=== PATIENT | female | born 1995 | race Caucasian/White ===

== ENCOUNTER 2016-06-08 11:24 | Observation (INO) ==
[2016-06-08] MEDS ORDERED: Ringers Solution, Lactated 500 ML IVC ONE (12:14)
[2016-06-08] MEDS ORDERED: Ringers Solution, Lactated 1,000 ML ONE (12:15)
[2016-06-08] MEDS ORDERED: Ondansetron 4 MG/2 ML VIAL IVP ONE (12:15)
[2016-06-08 12:18] LABS: Bilirubin,Urine Negative (Negative); Blood,Urine Negative (Negative); Clarity,Urine Cloudy (Clear); Color,Urine Yellow (Yellow); Glucose,Urine (UA) Normal (Normal); Ketones,Urine 40 mg/dL (Negative); Leukocyte Esterase,Urine Negative (Negative); Nitrite,Urine Negative (Negative); Protein,Urine Negative (Neg-Trace); Specific Gravity,Urine 1.017 (1.010-1.025); Urobilinogen,Urine Normal (Normal)
[2016-06-08 12:20] LABS: Bacteria,Urine Moderate per hpf (None-Few); Hyaline Casts,Urine None Seen per lpf (None-Few); RBC,Urine 0-3 per hpf (0-3); Squamous Epithelial Cell,Urine Many per lpf (None-Few); WBC,Urine 0-3 per hpf (0-3)
[2016-06-08 12:30] LABS: Calcium Oxalate Crystals,Urine Present
--- NOTE | 2016-06-08 14:06 | Discharge Summary ---
Date of Encounter: 06/08/16 Time of Encounter: 14:08 - Discharge Diagnosis (1) 23 weeks gestation of Priority: Primary Status: Acute (2) Nausea and vomiting during Priority: Primary Status: Acute Comments: Patient states she has been nauseous and vomiting since yesterday afternoon tried water this morning and did not keep it down. Given a 500 mL bolus of LR and by mouth challenged. Patient past by mouth challenge tolerated juice and crackers (3) Encounter for suspected PROM, with rupture of membranes not found Priority: Primary Status: Acute Comments: Patient complains of leaking of clear Stipe fluid vaginally for the last 2 days. Speck exam shows thin white vaginal discharge. Fern negative nitrazine negative, vaginosis panel and GC/CT cultures obtained - Discharge Medications Home Medications: Ondansetron HCl [Zofran] 4 mg PO Q8H PRN #7 tablet 07/30/15 [Rx] Allergies/Adverse Reactions: Allergies No Known Allergies Allergy (Verified 07/30/15 18:13) Data Procedures and tests throughout hospitalization: Laboratory Tests 06/08/16 12:00 Urine Color Yellow Urine Clarity Cloudy A Urine pH 7.0 Ur Specific Mcdaniels 1.017 Urine Protein Negative Urine Glucose (UA) Normal Urine Ketones 40 H Urine Blood Negative Urine Nitrite Negative Urine Bilirubin Negative Urine Urobilinogen Normal Ur Leukocyte Esterase Negative Urine Microscopic RBC 0-3 Urine Microscopic WBC 0-3 Ur Squamous Epith Cells Many H Calcium Oxalate Crystal Present Urine Bacteria Moderate H Hyaline Casts None Seen Ur Culture Indicated? NO Labs on day of discharge: Labs from last 24 hours 06/08/16 12:00 Urine Color Yellow Urine Clarity Cloudy A Urine pH 7.0 Ur Specific Mcdaniels 1.017 Urine Protein Negative Urine Glucose (UA) Normal Urine Ketones 40 H Urine Blood Negative Urine Nitrite Negative Urine Bilirubin Negative Urine Urobilinogen Normal Ur Leukocyte Esterase Negative Urine Microscopic RBC 0-3 Urine Microscopic WBC 0-3 Ur Squamous Epith Cells Many H Calcium Oxalate Crystal Present Urine Bacteria Moderate H Hyaline Casts None Seen Ur Culture Indicated? 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: other (leaking of fluid, nausea ) Time Attestation: Total time spent providing and/or coordinating discharge services: Time Spent: Less than 30 minutes Exam - Constitutional General appearance IM: A&O X 3 - Respiratory Respiratory exam: Present: CTAB - Cardiovascular Cardiovascular exam IM: Present: RRR, +S1, +S2 - GI/Abdominal GI/Abdominal exam IM: normal bowel sounds, soft (gravid) - Extremities Exam Extremities exam IM: Present: normal capillary refill, normal inspection - Neurological Exam Neurological exam: normal gait, oriented X3 - VTE Reasons for not Prescribing Prophylaxis: Treatment not Indicated - Low risk for VTE
== END 2016-06-08 14:30 | disposition home or self-care (01) ==
LOC: 1NENULAB
PROVIDERS: ADMIT Obstetrics & Gynecology; ATTEND Obstetrics & Gynecology

== ENCOUNTER 2016-06-22 19:27 | Observation (INO) ==
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
== END 2016-06-23 01:55 | disposition home or self-care (01) ==
LOC: 1NENULAB

== ENCOUNTER → 2016-08-14 14:25 | Observation (INO) ==
--- NOTE | 2016-08-14 13:47 | OB/GYN Progress Note ---
Date of Encounter: 08/14/16 Time of Encounter: 13:45 - Assessment and Plan (1) 33 weeks gestation of Current Visit: Yes Status: Acute (2) Vaginal discharge during in third trimester Current Visit: Yes Status: Acute SSE with physiologic appearing discharge in vault. Negative nitrazine, negative pool, negative fern. Vaginosis panel done last week in office and was negative. (3) Decreased movement Current Visit: Yes Status: Acute NST 150BPM, reactive Pt feeling movements. Kick counts discussed. Discharge home with precautions. Qualifiers: Fetus number: single or unspecified fetus Trimester: third trimester Qualified Code(s): O36.8130 - Decreased movements, third trimester, not applicable or unspecified Subjective - Subjective Interval history: 20 year-old presenting at 33 weeks gestation with c/o leaking fluid, decreased movement, and occassional contractions. She reports small amounts of fluid leaking since about 1000 this am as well as contractions starting around 0900. She reports she is feeling some movements but less than normal. She states she is feeling 4-5 movements in the last hour but normally she feels constant movements. She denies urinary sx, vaginal discharge , itching or burning, or vaginal bleeding. Antepartum ROS: loss of fluid, contractions, no vaginal bleeding, no movement normal Objective - Vital Signs Vital Signs: Intake and Output 08/13/16 08/14/16 08/14/16 23:59 07:59 15:59 Other: Weight 66.2 kg Patient Weight 08/14/16 23:59 Weight 66.2 kg - Exam FHR: category 1 FHR comments: NST 150BPM reactive. Auscultation: bilateral: normal Abdomen: Present: soft, gravid. Absent: tenderness Uterus: Absent: tenderness Cervical dilation: closed Comments: SSE with physiologic appearing discharge in vault. Negative nitrazine, negative pool, negative fern.
== END | disposition home or self-care (01) ==
LOC: 1NENULAB
PROVIDERS: ADMIT Obstetrics & Gynecology; ATTEND Obstetrics & Gynecology

== ENCOUNTER → 2016-09-22 22:10 | Observation (INO) ==
[2016-09-22 19:04] LABS: Uric Acid 4.3 mg/dL (2.6-6.0)
--- NOTE | 2016-09-22 21:41 | Discharge Summary ---
Date of Encounter: 09/22/16 Time of Encounter: 21:44 - Discharge Diagnosis (1) Fall Priority: Primary Status: Acute Comments: Ms Roblero is a at 38 weeks that present to the emergency room after a fall directly on to her abdomen. Patient states she was bending over to pickler helper a cat and fell forward onto her stomach. She did not feel a gush of fluid. She has felt movement. She denies headache, visual disturbance, epigastric pain, vaginal bleeding, and vaginal discharge. She has not had any contraction or abdominal tightening/cramping since admission. She is c/o pain in the upper abdomen where she hit her abdomen. Per ED, she had a KB that was negative, normal bloodwork, and a normal ultrasound. The ED did state that she did have a blood pressure that was elevated 140's / 90 's. Extended 4 hour monitoring - reactive tracing. Baseline 160 with moderate variability and 15 x 15 accels with no decels Serial blood pressures WNL PIH labs WNL POC per consult with Dr Joel. Patient may use tylenol PO OTC 650mg po q6 hours prn for pain. Discussed heat application vs ice application for pain as well as soaking in a warm (not hot) tub for comfort as well as long as there was someone home to help her get out of the tub. Discussed warning signs and when to return to care. Follow up in office as scheduled with Dr Greene for care and prn. Qualifiers: Encounter type: initial encounter Qualified Code(s): W19.XXXA - Unspecified fall, initial encounter (2) 38 weeks gestation of Priority: Secondary Status: Acute - Discharge Medications Home Medications: Daily Combo Pack 1 tab PO DAILY 06/22/16 [History] Ferrous Sulfate [Iron] 1 tab PO BID 09/22/16 [History] Allergies/Adverse Reactions: Allergies No Known Allergies Allergy (Verified 09/22/16 18:22) Data Procedures and tests throughout hospitalization: Laboratory Tests 09/22/16 16:17 Uric Acid 4.3 AST 14 ALT 9 Lactate Dehydrogenase 186 Labs on day of discharge: Labs from last 24 hours 09/22/16 16:17 Uric Acid 4.3 AST 14 ALT 9 Lactate Dehydrogenase 186 Date of admission: 09/22/16 18:03 Discharging clinician: Mary Pack Anticipated date of discharge: 09/22/16 - Patient Status Disposition: Home, Self-Care Condition: Good Functional capacity at discharge: independent ambulation - Discharge Instructions Follow Up With: Elmer Greene MD [Partnered Physician] - - Diet and Activity Activity: increase activity as tolerated Diet: regular diet 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 FHTs 160 with moderate variability and 15 x 15 accels with no decels No contractions per monitor, palpation, or patient report. - Extremities Exam Extremities exam IM: Present: normal capillary refill, normal inspection, radial pulses palpable and symmetrical - Neurological Exam Neurological exam: alert, oriented X3 - VTE Reasons for not Prescribing Prophylaxis: Treatment not Indicated - Low risk for VTE
== END | disposition home or self-care (01) ==
LOC: 1NENULAB

== ENCOUNTER → 2016-10-04 21:32 | Observation (INO) ==
[2016-10-04 21:02] LABS: Bilirubin,Urine Negative (Negative); Blood,Urine Negative (Negative); Clarity,Urine Cloudy (Clear); Color,Urine Yellow (Yellow); Glucose,Urine (UA) Normal (Normal); Ketones,Urine Negative (Negative); Leukocyte Esterase,Urine Negative (Negative); Nitrite,Urine Negative (Negative); Protein,Urine 30 mg/dL (Neg-Trace); Specific Gravity,Urine 1.023 (1.010-1.025); Urobilinogen,Urine Normal (Normal)
[2016-10-04 21:04] LABS: Bacteria,Urine Few per hpf (None-Few); Hyaline Casts,Urine None Seen per lpf (None-Few); Squamous Epithelial Cell,Urine Many per lpf (None-Few)
[2016-10-04 21:16] LABS: RBC,Urine 0-3 per hpf (0-3)
[~2016-10-04 21:32] MED LIST: Acetaminophen 325 MG TABLET PO ONE
--- NOTE | 2016-10-04 21:49 | OB/GYN Progress Note ---
Date of Encounter: 10/04/16 Time of Encounter: 21:26 - Assessment and Plan (1) 40 weeks gestation of Status: Acute (2) Uterine contractions Status: Acute Pt states back pain has improved since being at hospital with changing positioning. Cervix remains unchanged. Nirazine negative.UA negative for infection. Discharged to home with labor precautions and when to return to triage. Pt and mother verbalize understanding. Subjective - Subjective Interval history: Pt reports back pain since 9am this morning and the feeling of period cramps every 5-10 minutes and has has some white discharge noted. . Reports good movement, denies vaginal bleeding or leaking of fluid. Pt states she was supposed to be seen by Dr. Greene today and called this morning with complaints of back pain and was told to come to triage for evaluation instead of Drs appointments. Pt did not come until this evening. Antepartum ROS: new complaints, movement normal, contractions, no loss of fluid, no vaginal bleeding Objective - Vital Signs Vital Signs: Intake and Output 10/04/16 10/04/16 10/04/16 07:59 15:59 23:59 Other: Weight 72.5 kg Patient Weight 10/04/16 23:59 Weight 72.5 kg - Exam FHR: auscultation normal FHR comments: Baseline 125 Auscultation: bilateral: normal Abdomen: Present: normal appearance, soft, gravid Uterus: Present: normal Cervical dilation: Fingertip/long Comments: + CVA tenderness - Labs Labs: Abnormal lab results Urine Clarity Cloudy (Clear) A 10/04/16 20:56 Urine Protein 30 mg/dL (Neg-Trace) H 10/04/16 20:56 Urine Microscopic WBC 3-5 per hpf (0-3) H 10/04/16 20:56 Ur Squamous Epith Cells Many per lpf (None-Few) H 10/04/16 20:56
== END | disposition home or self-care (01) ==
LOC: 1NENULAB
PROVIDERS: ADMIT Obstetrics & Gynecology; ATTEND Obstetrics & Gynecology

== ENCOUNTER 2016-10-09 08:00 | Inpatient (IN) ==
[2016-10-09] MEDS ORDERED: Metoclopramide 10 MG/2 ML VIAL IVP PRN (10:16)
[2016-10-09] MEDS ORDERED: Naloxone 0.4 MG/ML INJ IVP PRN ×2 (10:16→14:42)
[2016-10-09] MEDS ORDERED: Famotidine 20 MG/2 ML VIAL IVP PRN (10:16)
[2016-10-09] MEDS ORDERED: *HR* Nalbuphine 20 MG/ML AMPUL IVP PRN (10:19)
[2016-10-09 10:50] LABS: Basophils # 0.1 K/mcL (0.0-0.2); Basophils % 0.3 %; Eosinophils # 0.1 K/mcL (0.0-0.6); Eosinophils % 0.3 %; Hemoglobin 10.3 g/dL (11.5-15.4); Immature Granulocytes % 0.6 % (0-4); Lymphocytes # 2.1 K/mcL (0.6-4.6); Lymphocytes % 13.7 %; Mean Corpuscular HGB Conc 31.2 g/dL (31.6-35.5); Mean Corpuscular Hemoglobin 26.7 pg (28.0-33.3); Mean Corpuscular Volume 85.5 fL (83.0-100.0); Mean Platelet Volume 10.5 fL (9.4-12.4); Monocytes # 1.1 K/mcL (0.0-1.3); Monocytes % 6.9 %; Platelet Count 299 K/mcL (140-400); Red Blood Count 3.86 M/mcL (3.82-4.97); Red Cell Distribution Width 14.2 % (11.5-14.5); Segmented Neutrophils % 78.2 %
--- NOTE | 2016-10-09 10:53 | OB/GYN History & Physical ---
Date of Encounter: 10/09/16 Time of Encounter: 10:56 Assessment and Plan (1) 41 weeks gestation of Current visit: Yes Status: Acute (2) Uterine contractions Current visit: No Status: Acute (3) Post-dates Current visit: Yes Status: Acute Admit to labor and delivery Induction with cytotec Nubain and epidural as desired Anticipate Qualifiers: Post-term type: 40-42 weeks gestation Qualified Code(s): O48.0 - Post-term History of Present Illness Chief complaint: Induction HPI: Ms. Roblero is a 20 year old female at 41 wks. She was last seen in the office 09/26/16. She was scheduled for induction today for post dates. Started having contractions this morning. They are now 7-8 minutes apart. She feels good movement, Denies leaking of fluid, No vaginal bleeding. Uncomplicated course, Labs: B+, Rubella and varicella immune,GBS negative, all other serologies negative. Past Med Surg Social Fam HX - Past Medical History Medical history: no medical history Psychiatric history: anxiety - Past Surgical History Surgical History: other - Social History Smoking Status: Former smoker Smokeless Tobacco Status: No Alcohol use: none Drug use: none - Family History Father Adopted: No Family Member Ethnicity: Non- Living Status: Still Living Hx Family Cardiac Disorders: Yes (HTN) Hx Family Respiratory Disorders: No Hx Family Cancer: No Hx Family GI Disorders: No Hx Family Endocrine Disorder: Yes (DM) Hx Family Neuromuscular Disorders: No Hx Family Neurologic Disorders: No Hx Family HEENT Disorders: No Hx Family Autoimmune Disorders: No Obstetrical History - Pregnancies : 1 Para: 0 Term: 0 : 0 Ab's: 0 Livin Medications and Allergies Daily Combo Pack 1 tab PO DAILY 06/22/16 [History] 3 Allergy/AdvReac Type Severity Reaction Status Date / Time No Known Allergies Allergy Verified 10/09/16 10:11 Exam - Constitutional Constitutional: well developed, well nourished, no acute distress - HEENT HEENT: Normocephaly, Mucus Membranes Moist - Neck Neck exam: trachea midline - Lungs Respiratory exam: CTAB - Cardiovascular Cardiovascular exam: RRR - Abdomen Abdomen: Present: gravid, non tender - Extremities Extremities exam: normal capillary refill, normal inspection Deep Tendon Reflex Grade: 2+ Normal - Cervix Dilation: 2 (per RN ) Effacement: 80 - Uterus Uterus exam: Present: normal size, normal contour Results Result Diagrams: 10/09/16 10:35 All other labs normal. - VTE Reasons for not Prescribing Prophylaxis: Treatment not Indicated - Low risk for VTE
[2016-10-09] MEDS: Ringers Solution, Lactated 1,000 ML IVC SCH ×2 (11:04→14:46)
[2016-10-09] MEDS ORDERED: miSOPROStol 25 MCG TABLET VG SCH (12:00)
--- NOTE | 2016-10-09 13:53 | OB Labor Progress Note ---
Date of Encounter: 10/09/16 Time of Encounter: 13:50 Labor Progress Note - Subjective Subjective: Pt feeling contractions, breathing through them, desires epidural - Cervix Cervix: 3/100/-1 - Heart Tones Heart Tones: 125/moderate/+accles/Variable decels - Twodot Twodot: unable to determine placing IUPC - Interventions Interventions: IUPC placed - Plan Plan: IUPC placed without diffuculty Epidural requested If no cervical change will start pitocin. Anticipate
[2016-10-09] MEDS ORDERED: Bupivacaine-MPF 0.25% 10 ML VIAL EP ONE (14:42)
[2016-10-09] MEDS ORDERED: *HR* FentaNYL (PF) 100 MCG/2 ML VIAL EP ONE (14:42)
[2016-10-09] MEDS ORDERED: EPHEDrine 50 MG/ML VIAL IVP PRN (14:42)
[2016-10-09] MEDS ORDERED: Ondansetron 4 MG/2 ML VIAL IVP PRN (14:42)
[2016-10-09] MEDS ORDERED: *HR* Ropivacaine/PF 0.2% 10 ML AMPUL EP ONE (14:42)
[2016-10-09] MEDS ORDERED: Epidural Premix (fent/bupiv) 110 ML EP SCH (14:45)
--- NOTE | 2016-10-09 14:46 | Anesthesia Evaluation PreOp ---
Date of Encounter: 10/09/16 Time of Encounter: 14:30 - Past History Planned Operation: ROMEL Cardiac History: Denies any Significant Hx Pulmonary History: Denies Any Significant HX POT RUNNER History: Denies Any Significant HX Other Medical History: Denies Any Significant HX Anesthesia History: No Prior Anesthetic Complications, Past Anesthesia ([place] teeth extraction) : Yes Alcohol Use: none Drug use: none Medications and Allergies Daily Combo Pack 1 tab PO DAILY 06/22/16 [History] 3 Allergy/AdvReac Type Severity Reaction Status Date / Time No Known Allergies Allergy Verified 10/09/16 10:11 - Meds/Allergy Pre-op Review Medications Reviewed: Yes Allergies Reviewed: Yes Beta Blockers on Current Med List: No Anesthesia Results - Labs 10/09/16 10:35 Anesthesia Exam BP 122.87 P 80 97.0 Height: 5'2" Weight: 71.8kg NPO (# of Hours): 2 Pain Scale: 8 Pain Scale Used: Numeric (1 - 10) - HEENT Pupil (Motor): Pupils equal Mallampati: II Teeth: Normal Oral Opening: Greater than 3 - POT RUNNER POT RUNNER Motor: Normal RUE, Normal LUE, Normal RLE, Normal LLE, Normal Face POT RUNNER Sensory: Normal: RUE, LUE, RLE, LLE, Face - Cardiac Rhythm: Regular Murmur: None JVD: No Carotid Bruit: No - Pulmonary Breath Sounds: bilateral Clear Respiratory Effort: Symmetrical Anesthesia Assess/Plan ASA Score: 2 Modified Jasmin Scale for Level of Consciousness: Cooperative, oriented, and tranquil Anesthetic Plan: Regional Monitoring Plan: Standard Monitors Recovery Plan: Other
[2016-10-09] MEDS ORDERED: Epidural Premix (fent/bupiv) 110 ML EP ONE (14:49)
[2016-10-09] MEDS ORDERED: *HR* FentaNYL (PF) 100 MCG/2 ML VIAL ONE (14:49)
[2016-10-09] MEDS ORDERED: Bupivacaine-MPF 0.25% 10 ML VIAL ONE (14:49)
[2016-10-09] MEDS ORDERED: Terbutaline 1 MG/ML VIAL SQ ONE ×2 (15:28→15:29)
--- NOTE | 2016-10-09 15:36 | Anesthesia Procedures ---
Date of Encounter: 10/09/16 Time of Encounter: 14:52 Procedures: Anesthesia - Epidural/Spinal Patient ID/Chart reviewed: Yes Patient examined: Yes OB Eval: Gestational age: 41 OB Eval: : 1 OB Eval: Hx Para: 0 OB Eval: Dilated at (cm): 5 OB Eval: Contractions: Non-stressed pattern Consent Obtained: Yes Supplemental Oxygen: None/Room Air Site Prep: Aseptic Technique, Sterile prep and drape, Povidone-Iodine 1% Patient position: upright Local Anesthetic: Lidocaine 1% Amount of Local Anesthetic used: 3 Touhy Needle Gauge: 18 Touhy Needle Depth (cm): 6 Catheter Depth at Skin (cm): 14 Test Dose (1.5% Lido + Epi): Volume given (mls): 3 Test Dose Result: Negative Loading Dose: 0.25% Marcaine (mls): 10 Loading Dose: Fentanyl (mcg): 100 Infusion Med: 0.125% Bupivacaine w/ 2 mcg/ml Fentanyl Infusion Rate (mls/hr): [address]: Tegaderm, Tape Interspace Used: L4-L5 Loss of Resistance (LOIS): Yes Blood: No CSF: No Paresthesia: No Procedure: ROMEL placed 1st pass without any immediate noted complications. VSS throughout. Vitals + FHT's: 1452 BP 125/75 P 83 R20 1520 BP 116/53 P 75 R 16 FHT 120s-130s
--- NOTE | 2016-10-09 15:48 | OB Labor Progress Note ---
Date of Encounter: 10/09/16 Time of Encounter: 15:43 Labor Progress Note - Plan Plan: Called into room because of decelerations secondary to tachysystole, patient is s/p cytotec 4 hrs ago and AROM @ 1254PM, maternal positioning, terbutaline was given, O2 given, FHR recovered, VSS FHR baseline 125/moderate ramakrishna, cont monitoring strip
[2016-10-09] MEDS ORDERED: Oxytocin 20 units/ LR 1000 mL 20 UNIT/1,000 ML BAG IVC ONE (17:42)
[2016-10-09] MEDS ORDERED: Lidocaine 1% 20 ML MDV ONE (17:51)
[2016-10-09] MEDS ORDERED: *HR* Labetalol 20 MG/4 ML SYRINGE IVP ONE (18:54)
[2016-10-09 19:23] LABS: Basophils # 0.1 K/mcL (0.0-0.2); Basophils % 0.2 %; Hemoglobin 9.9 g/dL (11.5-15.4); Immature Granulocytes % 0.7 % (0-4); Lymphocytes # 1.1 K/mcL (0.6-4.6); Lymphocytes % 4.5 %; Mean Corpuscular HGB Conc 30.9 g/dL (31.6-35.5); Mean Corpuscular Hemoglobin 26.4 pg (28.0-33.3); Mean Corpuscular Volume 85.3 fL (83.0-100.0); Mean Platelet Volume 10.4 fL (9.4-12.4); Monocytes # 1.4 K/mcL (0.0-1.3); Monocytes % 5.9 %; Neutrophils # 21.3 K/mcL (1.6-8.9); Platelet Count 274 K/mcL (140-400); Red Blood Count 3.75 M/mcL (3.82-4.97); Red Cell Distribution Width 14.2 % (11.5-14.5); Segmented Neutrophils % 88.7 %
[2016-10-09 19:32] LABS: Protein/Creatinine Ratio,Urine 0.2 mg/mg (0-0.20)
[2016-10-09 19:36] LABS: Alanine Aminotransferase 9 Units/L (0-55); Aspartate Amino Transferase 16 Units/L (5-34); BUN/Creatinine Ratio 15 (6-26); Blood Urea Nitrogen 9 mg/dL (7-20); Lactate Dehydrogenase 207 Units/L (159-327); Uric Acid 5.4 mg/dL (2.6-6.0); eGFR For African Americans > 60; eGFR For Non-African Americans > 60
[2016-10-09 20:26] LABS: Platelet Estimate Normal (Normal); Polychromasia 1+ (Not Present)
[2016-10-09] MEDS ORDERED: Lanolin 7 G OINT...G. TP PRN (20:56)
[2016-10-09] MEDS ORDERED: Oxytocin 20 units/ LR 1000 mL 20 UNIT/1,000 ML BAG IVC SCH (20:56)
[2016-10-09] MEDS ORDERED: Acetaminophen 325 MG TABLET PO PRN (20:56)
[2016-10-09] MEDS ORDERED: *HR* HYDROcodone/Acet 5/325 mg TABLET PO PRN (20:56)
[2016-10-09] MEDS ORDERED: Benzocaine/Menthol 56 GM AEROSOL SPRAY TP PRN (20:56)
--- NOTE | 2016-10-09 21:07 | OB/GYN Procedure Note ---
Delivery - Delivery Date: 10/09/16 Provider: Elmer Greene Intrapartum events: none Delivery induction: misoprostol Delivery monitor: external FHT, internal FHT Anesthesia: epidural Estimated Blood Loss: 150 - (s) A Delivery Date: 10/09/16 Infant Delivery Time: 17:57 Presentation: vertex Position: MANDEEP Gender: Male Viability: Viable Weight Gram: 3.575 kg at 1 minute: 8 at 5 mins: 9 Shoulder Dystocia: not encountered Placenta: spontaneous - Repair Episiotomy: mediolateral Laceration Description: None - Complications Delivery complications: none - Disposition Mom disposition: stable in LDR disposition: stable in LDR - Comments Comments: Melinda is a 20 y/o now who delivered a viable male infant @ 41+0 weeks via VAVD for CAT 2 tracing. Infant was delivered MANDEEP @ 1757 after a mediolateral episiotomy was performed. Weight 3575g, APGARs 8/9, EBL 150, Placenta was delivered @ 1800hrs. Mediolateral episiotomy repaired with 3-0 Vicryl in usual fashion, no lacerations, mother and infant doing well.
[2016-10-10] MEDS: Ibuprofen 600 MG TABLET PO PRN ×2 (04:42→13:20)
[2016-10-10 07:19] LABS: Basophils % 0.2 %; Eosinophils % 0.1 %; Hematocrit 28.9 % (35.3-44.9); Hemoglobin 9.1 g/dL (11.5-15.4); Immature Granulocytes % 0.6 % (0-4); Mean Corpuscular HGB Conc 31.5 g/dL (31.6-35.5); Mean Corpuscular Hemoglobin 26.8 pg (28.0-33.3); Mean Corpuscular Volume 85.3 fL (83.0-100.0); Mean Platelet Volume 10.5 fL (9.4-12.4); Monocytes # 1.6 K/mcL (0.0-1.3); Monocytes % 8.8 %; Neutrophils # 14.7 K/mcL (1.6-8.9); Platelet Count 242 K/mcL (140-400); Red Blood Count 3.39 M/mcL (3.82-4.97); Red Cell Distribution Width 14.6 % (11.5-14.5); Segmented Neutrophils % 79.3 %
[2016-10-10] MEDS ORDERED: Prenatal Vit/FA 1 EACH TABLET PO SCH (09:00)
--- NOTE | 2016-10-10 09:42 | Discharge Summary ---
Date of Encounter: 10/10/16 Time of Encounter: 09:40 - Discharge Diagnosis (1) Vaginal delivery Priority: Primary Status: Acute Comments: Patient doing well s/p vaginal delivery Pain is well controlled Lochia is light and without clots. Tolerating regular diet, voiding normally, passing flatus is going well Follow up in office in 6 weeks Discharge home today (2) Patient is a currently breast-feeding mother Priority: Secondary Status: Acute Comments: Patient doing well with She would like a breastpump (3) Anemia complicating puerperium Priority: Secondary Status: Acute Comments: VSS, asymptomatic Discharge home with ferrous sulfate Rx. - Discharge Medications Prescriptions: Ibuprofen [Motrin] 600 mg PO Q6HR PRN #30 tab PRN Reason: Cramping Breast Pump [BREAST PUMP] 1 each .ROUTE AD #1 each Docusate [Colace] 100 mg PO BID #14 Ferrous Sulfate 325 mg PO DAILY #30 tab Home Medications: Daily Combo Pack 1 tab PO DAILY 06/22/16 [History] Benzocaine/Menthol [place] [Dermoplast [place]] 1 appl TP QID PRN aerosol 10/10/16 [Rx] Breast Pump [BREAST PUMP] 1 each .ROUTE AD #1 each 10/10/16 [Rx] Docusate [Colace] 100 mg PO BID #14 10/10/16 [Rx] Ferrous Sulfate 325 mg PO DAILY #30 tab 10/10/16 [Rx] Ibuprofen [Motrin] 600 mg PO Q6HR PRN #30 tab 10/10/16 [Rx] Lanolin [Lansinoh] 1 appl TP QID PRN 10/10/16 [Rx] Allergies/Adverse Reactions: 3 Allergy/AdvReac Type Severity Reaction Status Date / Time No Known Allergies Allergy Verified 10/09/16 10:11 Data Procedures and tests throughout hospitalization: Laboratory Tests 10/09/16 10/09/16 10/09/16 10:35 19:10 19:10 WBC 15.3 H 24.0 H D RBC 3.86 3.75 L Hgb 10.3 L 9.9 L Hct 33.0 L 32.0 L MCV 85.5 85.3 MCH 26.7 L 26.4 L MCHC 31.2 L 30.9 L RDW 14.2 14.2 Plt Count 299 274 MPV 10.5 10.4 Immature Gran % 0.6 0.7 Seg Neutrophils % 78.2 88.7 Lymphocytes % 13.7 4.5 Monocytes % 6.9 5.9 Eosinophils % 0.3 0.0 Basophils % 0.3 0.2 Neutrophils # 12.0 H 21.3 H Lymphocytes # 2.1 1.1 Monocytes # 1.1 1.4 H Eosinophils # 0.1 0.0 Basophils # 0.1 0.1 Platelet Estimate Normal Polychromasia 1+ A BUN Creatinine Est GFR ( Amer) Est GFR (Non-Af Amer) BUN/Creatinine Ratio Uric Acid AST ALT Lactate Dehydrogenase Urine Creatinine 108 Protein/Creatinin Ratio 0.20 Urine Total Protein 22 H 10/09/16 10/10/16 19:10 06:56 WBC 18.5 H RBC 3.39 L Hgb 9.1 L Hct 28.9 L MCV 85.3 MCH 26.8 L MCHC 31.5 L RDW 14.6 H Plt Count 242 MPV 10.5 Immature Gran % 0.6 Seg Neutrophils % 79.3 Lymphocytes % 11.0 Monocytes % 8.8 Eosinophils % 0.1 Basophils % 0.2 Neutrophils # 14.7 H Lymphocytes # 2.0 Monocytes # 1.6 H Eosinophils # 0.0 Basophils # 0.0 Platelet Estimate Polychromasia BUN 9 Creatinine 0.62 Est GFR ( Amer) > 60 Est GFR (Non-Af Amer) > 60 BUN/Creatinine Ratio 15 Uric Acid 5.4 AST 16 ALT 9 Lactate Dehydrogenase 207 Urine Creatinine Protein/Creatinin Ratio Urine Total Protein Labs on day of discharge: Labs from last 24 hours 10/10/16 10/09/16 10/09/16 06:56 19:10 19:10 WBC 18.5 H 24.0 H D RBC 3.39 L 3.75 L Hgb 9.1 L 9.9 L Hct 28.9 L 32.0 L MCV 85.3 85.3 MCH 26.8 L 26.4 L MCHC 31.5 L 30.9 L RDW 14.6 H 14.2 Plt Count 242 274 MPV 10.5 10.4 Immature Gran % 0.6 0.7 Seg Neutrophils % 79.3 88.7 Lymphocytes % 11.0 4.5 Monocytes % 8.8 5.9 Eosinophils % 0.1 0.0 Basophils % 0.2 0.2 Neutrophils # 14.7 H 21.3 H Lymphocytes # 2.0 1.1 Monocytes # 1.6 H 1.4 H Eosinophils # 0.0 0.0 Basophils # 0.0 0.1 Platelet Estimate Normal Polychromasia 1+ A BUN 9 Creatinine 0.62 Est GFR ( Amer) > 60 Est GFR (Non-Af Amer) > 60 BUN/Creatinine Ratio 15 Uric Acid 5.4 AST 16 ALT 9 Lactate Dehydrogenase 207 Urine Creatinine Protein/Creatinin Ratio Urine Total Protein 10/09/16 10/09/16 19:10 10:35 WBC 15.3 H RBC 3.86 Hgb 10.3 L Hct 33.0 L MCV 85.5 MCH 26.7 L MCHC 31.2 L RDW 14.2 Plt Count 299 MPV 10.5 Immature Gran % 0.6 Seg Neutrophils % 78.2 Lymphocytes % 13.7 Monocytes % 6.9 Eosinophils % 0.3 Basophils % 0.3 Neutrophils # 12.0 H Lymphocytes # 2.1 Monocytes # 1.1 Eosinophils # 0.1 Basophils # 0.1 Platelet Estimate Polychromasia BUN Creatinine Est GFR ( Amer) Est GFR (Non-Af Amer) BUN/Creatinine Ratio Uric Acid AST ALT Lactate Dehydrogenase Urine Creatinine 108 Protein/Creatinin Ratio 0.20 Urine Total Protein 22 H Date of admission: 10/09/16 09:35 Primary care physician: Kumar Antonio MD Consults: 10/09/16 20:56 Consult to Software Solutions Architect [CONS] Routine Comment: Vaginal delivery, consult needed Discharging clinician: Mary Pack Anticipated date of discharge: 10/10/16 - Patient Status Disposition: Home, Self-Care Condition: Good Functional capacity at discharge: independent ambulation Overall status at discharge: patient is progressing back to baseline - Discharge Instructions Follow Up With: Kumar Antonio MD [Primary Care Provider] - Elmer Greene MD [Partnered Physician] - - Diet and Activity Activity: increase activity as tolerated Diet: regular diet Hospital Course Reason for admission: induction of labor, IUP at term Delivery: Episiotomy: mediolateral Laceration: none Other procedures: none complications: none Discharge diagnosis: IUP at term delivered [place] baby: male Time Attestation: Total time spent providing and/or coordinating discharge services: Time Spent: Less than 30 minutes Exam - Constitutional Vitals: Temp Pulse Resp BP Pulse Ox 98.5 F 81 12 111/71 96 10/10/16 07:50 10/10/16 07:50 10/10/16 07:50 10/10/16 07:50 10/10/16 07:50 General appearance IM: cooperative, A&O X 3, pleasant - Respiratory Respiratory exam: Present: CTAB - Cardiovascular Cardiovascular exam IM: Present: RRR, +S1, +S2 - GI/Abdominal GI/Abdominal exam IM: normal bowel sounds, soft - Uterine Tone: Firm Uterus Position: 1 Finger Below Umbilicus, Midline - Extremities Exam Extremities exam IM: Present: normal capillary refill, normal inspection, radial pulses palpable and symmetrical - Neurological Exam Neurological exam: alert, oriented X3
[2016-10-10 16:18] VITALS: BP 110/70
== END 2016-10-10 17:23 | disposition home or self-care (01) | DRG 775 ==
LOC: 1NENULAB 09:35 → 1NENUOBS 20:55
PROVIDERS: ADMIT Student in an Organized Health Care Education/Training Program; ATTEND Student in an Organized Health Care Education/Training Program

== ENCOUNTER 2016-11-15 15:43 | Inpatient (IN) ==
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
[2016-11-15 16:25] LABS: Bilirubin,Urine Negative (Negative); Blood,Urine Negative (Negative); Clarity,Urine Cloudy (Clear); Color,Urine Yellow (Yellow); Glucose,Urine (UA) Normal (Normal); Ketones,Urine Negative (Negative); Leukocyte Esterase,Urine Trace (Negative); Nitrite,Urine Negative (Negative); Protein,Urine Negative (Neg-Trace); Specific Gravity,Urine 1.014 (1.010-1.025); Urobilinogen,Urine Normal (Normal)
[2016-11-15 16:28] LABS: Bacteria,Urine Moderate per hpf (None-Few); Hyaline Casts,Urine None Seen per lpf (None-Few); RBC,Urine 0-3 per hpf (0-3); Squamous Epithelial Cell,Urine Many per lpf (None-Few)
[2016-11-15 16:32] LABS: Basophils # 0.1 K/mcL (0.0-0.2); Basophils % 0.8 %; Eosinophils # 0.2 K/mcL (0.0-0.6); Hematocrit 41.6 % (35.3-44.9); Hemoglobin 12.9 g/dL (11.5-15.4); Immature Granulocytes % 0.1 % (0-4); Lymphocytes # 2.3 K/mcL (0.6-4.6); Lymphocytes % 30.5 %; Mean Corpuscular Hemoglobin 26.5 pg (28.0-33.3); Mean Corpuscular Volume 85.6 fL (83.0-100.0); Mean Platelet Volume 9.8 fL (9.4-12.4); Monocytes # 0.5 K/mcL (0.0-1.3); Monocytes % 6.7 %; Neutrophils # 4.5 K/mcL (1.6-8.9); Platelet Count 302 K/mcL (140-400); Red Blood Count 4.86 M/mcL (3.82-4.97); Red Cell Distribution Width 14.1 % (11.5-14.5); Segmented Neutrophils % 59.9 %
[2016-11-15 16:46] LABS: BUN/Creatinine Ratio 12 (6-26); Blood Urea Nitrogen 9 mg/dL (7-20); Calcium 9.8 mg/dL (8.6-10.8); Carbon Dioxide 29 mEq/L (19-29); Chloride 108 mEq/L (98-109); Glucose 87 mg/dL (70-99); Osmolality,Calculated 290 (280-300); Sodium 141 mEq/L (136-145); eGFR For African Americans > 60; eGFR For Non-African Americans > 60
[2016-11-15 16:47] LABS: Acetaminophen < 1.0 mcg/mL (10-30); Ethanol < 10 mg/dL (0-10); Salicylate < 5.0 mg/dL (15-30)
[2016-11-15 17:29] LABS: Amphetamine Screen,Urine Negative ng/mL (Cutoff=1000); Barbiturate Screen,Urine Negative ng/mL (Cutoff=200); Benzodiazepines Screen,Urine Negative ng/mL (Cutoff=200); Cannabinoid Screen,Urine Negative ng/mL (Cutoff = 50); Cocaine Screen,Urine Negative ng/mL (Cutoff= 300); Opiate Screen,Urine Negative ng/mL (Cutoff=300); Phencyclidine Screen,Urine Negative ng/mL (Cutoff=25)
[2016-11-15] MEDS ORDERED: *HR* LORazepam 1 MG TABLET PO ONE (21:00)
[2016-11-15] MEDS ORDERED: MOM Conc 10 ML UD.LIQ PO PRN (21:43)
[2016-11-15] MEDS ORDERED: hydrOXYzine pamoate 25 MG CAPSULE PO PRN (21:43)
[2016-11-15] MEDS ORDERED: Mag Hydrox/Al Hydrox/Simeth 30 ML UDC PO PRN (21:43)
[2016-11-15] MEDS ORDERED: *HR* LORazepam 2 MG/ML VIAL IM PRN (21:43)
[2016-11-15] MEDS ORDERED: *HR* LORazepam 1 MG TABLET PO PRN (21:43)
[2016-11-15] MEDS ORDERED: Haloperidol Lactate 5 MG/ML VIAL IM PRN (21:43)
[2016-11-15] MEDS ORDERED: traZODone 50 MG TABLET PO PRN (21:43)
[2016-11-15] MEDS: Acetaminophen 325 MG TABLET PO PRN (23:24)
--- NOTE | 2016-11-16 12:42 | Psychiatry History & Physical ---
Date of Encounter: 11/16/16 Time of Encounter: 12:00 History of Present Illness Patient Stated Chief Complaint: i was having horrible post depression Medicare Admission Attestation: For traditional Medicare patients the provided hospital inpatient services are reasonable and necessary and in the case of services not specified as inpatient -only under 42 CFR 419.22 (n), that they are appropriately provided as inpatient services in accordance 42 CFR 412.3. For Critical Access Hospital the patient may reasonably be expected to be discharged or transferred to a hospital within 96 hours after admission to the Critical Access Hospital. Admitted From: Emergency Dept Plans for Post Hospital Care: Home History of Present Illness: Ms. Roblero is a 20 year old female evaluated today , was bought by to ED for depression and suicidal ideation. she then denies any in ED when seen by psych. She was admitted for evaluation , as per her she delivered baby on 10/09/16 , healthy son and NVD She states I am not myself, 3 weeks ago she states i would cry for no reason , increase fights with and mood swings and thoughts of hurting self but no plan , states i would never hurt myself , i have a baby now. 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 she graduated last year, baby was unplanned and she is not breast feeding, i am down on my self , i want to cry and be myself and then feels guilty that not with the baby. She has no prior treatment for depression or any other mental illness. she denies drugs/alcohol. denies any psychosis, no paramjit, only feeling sad, tired, denies any hopelessness , denies worthlessness, at present denies suicidal ideation. she is dysphoric and down , but not suicidal. she agreed to treatment and will start zoloft 25 mg po am and increase to 50 mg , side effects explained to her. collateral was taken from , he said she has been irritable, mood swings and sad and hinting about hurting self. Past Med Surg Social Fam HX - Past Medical History Medical history: no medical history - Past Psychiatric History Psychiatric history: Reports: no psych history Family psychiatric history: No Family History of Suicide: None - Past Surgical History Surgical History: other - Social History Smoking Status: Former smoker Smokeless Tobacco Status: No Alcohol use: none Drug use: none - Family History Father Adopted: No Family Member Ethnicity: Non- Living Status: Still Living Hx Family Cardiac Disorders: Yes (HTN) Hx Family Respiratory Disorders: No Hx Family Cancer: No Hx Family GI Disorders: No Hx Family Endocrine Disorder: Yes (DM) Hx Family Neuromuscular Disorders: No Hx Family Neurologic Disorders: No Hx Family HEENT Disorders: No Hx Family Autoimmune Disorders: No Medications & Allergies No Known Home Drugs 11/16/16 [History] 3 Allergy/AdvReac Type Severity Reaction Status Date / Time No Known Allergies Allergy Verified 10/09/16 10:11 Review of Systems Constitutional: Denies: fever, chills, weakness, weight change Eyes: Denies: eye pain, vision change Ears, Nose, Throat: Denies: ear pain, throat pain, dental pain, hearing loss, congestion Cardiovascular: Denies: chest pain, palpitations, dyspnea on exertion Respiratory: Denies: cough, dyspnea, wheezes Gastrointestinal: Denies: abdominal pain, nausea, vomiting, diarrhea, constipation Genitourinary male: Denies: urgency, dysuria, frequency, genital lesions Genitourinary female: Denies: urgency, dysuria, frequency, abnormal menses, dyspareunia Musculoskeletal: Denies: joint swelling, joint pain Integumentary: Denies: rash, lesions, pruritus Neurological: Denies: headache, weakness, numbness, memory loss Psychiatric: Reports: depression, anxiety, suicidal ideation Endocrine: Denies: fatigue, heat or cold intolerance Hematologic/Lymphatic: Denies: easy bruising, lymphadenopathy Allergic/Immunologic: Denies: urticaria, itchy eyes Mental Status Exam Patient orientation: Yes Person, Yes Time, Yes Place Level of alertness: Alert Patient appearance: Appropriate Behavior: calm, cooperative Psychomotor activity: Normal Eye contact: Maintains Eye Contact Mood description: Depressed Affect description: congruent with mood Speech pattern: Coherent Speech volume: Soft/Quiet Thought process: Intact Thought content: Yes Intact Attention span: Capable of Focused Attention Memory description: Grossly Intact Patient reliability: Reliable Historian Intelligence estimate: Average Judgment: Fair Insight: Partial Exam - HEENT Head exam IM: Present: atraumatic, normal inspection, normocephalic Eye exam IM: Present: normal appearance ENT exam IM: Present: normal exam - Neurological Neurological exam IM: Present: alert, CN II-XII intact, normal gait, oriented X3 - Skin Skin exam IM: Present: dry, warm Results - Vital Signs Vital signs: Temp Pulse Resp BP Pulse Ox 98.2 F 80 16 113/77 98 11/16/16 09:00 11/16/16 09:00 11/16/16 09:00 11/16/16 09:00 11/15/16 21:12 - Labs Labs: Laboratory Last Values WBC 7.6 K/mcL (4.3-11.1) 11/15/16 16:21 RBC 4.86 M/mcL (3.82-4.97) 11/15/16 16:21 Hgb 12.9 g/dL (11.5-15.4) 11/15/16 16:21 Hct 41.6 % (35.3-44.9) 11/15/16 16:21 MCV 85.6 fL (83.0-100.0) 11/15/16 16:21 MCH 26.5 pg (28.0-33.3) L 11/15/16 16:21 MCHC 31.0 g/dL (31.6-35.5) L 11/15/16 16:21 RDW 14.1 % (11.5-14.5) 11/15/16 16:21 Plt Count 302 K/mcL (140-400) 11/15/16 16:21 MPV 9.8 fL (9.4-12.4) 11/15/16 16:21 Immature Gran % 0.1 % (0-4) 11/15/16 16:21 Seg Neutrophils % 59.9 % 11/15/16 16:21 Lymphocytes % 30.5 % 11/15/16 16:21 Monocytes % 6.7 % 11/15/16 16:21 Eosinophils % 2.0 % 11/15/16 16:21 Basophils % 0.8 % 11/15/16 16:21 Neutrophils # 4.5 K/mcL (1.6-8.9) 11/15/16 16:21 Lymphocytes # 2.3 K/mcL (0.6-4.6) 11/15/16 16:21 Monocytes # 0.5 K/mcL (0.0-1.3) 11/15/16 16:21 Eosinophils # 0.2 K/mcL (0.0-0.6) 11/15/16 16:21 Basophils # 0.1 K/mcL (0.0-0.2) 11/15/16 16:21 Sodium 141 mEq/L (136-145) 11/15/16 16:21 Potassium 4.0 mEq/L (3.5-4.5) 11/15/16 16:21 Chloride 108 mEq/L (98-109) 11/15/16 16:21 Carbon Dioxide 29 mEq/L (19-29) 11/15/16 16:21 BUN 9 mg/dL (7-20) 11/15/16 16:21 Creatinine 0.74 mg/dL (0.57-1.11) 11/15/16 16:21 Est GFR ( Amer) > 60 11/15/16 16:21 Est GFR (Non-Af Amer) > 60 11/15/16 16:21 BUN/Creatinine Ratio 12 (6-26) 11/15/16 16:21 Glucose 87 mg/dL (70-99) 11/15/16 16:21 Calculated Osmolality 290 (280-300) 11/15/16 16:21 Calcium 9.8 mg/dL (8.6-10.8) 11/15/16 16:21 Urine Color Yellow (Yellow) 11/15/16 16:15 Urine Clarity Cloudy (Clear) A 11/15/16 16:15 Urine pH 6.0 pH Units (5.0-8.0) 11/15/16 16:15 Ur Specific [place] 1.014 (1.010-1.025) 11/15/16 16:15 Urine Protein Negative mg/dL (Neg-Trace) 11/15/16 16:15 Urine Glucose (UA) Normal mg/dL (Normal) 11/15/16 16:15 Urine Ketones Negative mg/dL (Negative) 11/15/16 16:15 Urine Blood Negative (Negative) 11/15/16 16:15 Urine Nitrite Negative (Negative) 11/15/16 16:15 Urine Bilirubin Negative (Negative) 11/15/16 16:15 Urine Urobilinogen Normal mg/dL (Normal) 11/15/16 16:15 Ur Leukocyte Esterase Trace (Negative) H 11/15/16 16:15 Urine Microscopic RBC 0-3 per hpf (0-3) 11/15/16 16:15 Urine Microscopic WBC 5-15 per hpf (0-3) H 11/15/16 16:15 Ur Squamous Epith Cells Many per lpf (None-Few) H 11/15/16 16:15 Urine Bacteria Moderate per hpf (None-Few) H 11/15/16 16:15 Hyaline Casts None Seen per lpf (None-Few) 11/15/16 16:15 Salicylates < 5.0 mg/dL (15-30) L 11/15/16 16:21 Urine Opiates Screen Negative ng/mL (Veblfy=339) 11/15/16 16:15 Acetaminophen < 1.0 mcg/mL (10-30) L 11/15/16 16:21 Ur Barbiturates Screen Negative ng/mL (Czncrm=454) 11/15/16 16:15 Ur Phencyclidine Scrn Negative ng/mL (Cutoff=25) 11/15/16 16:15 Ur Amphetamines Screen Negative ng/mL (Yvimho=2747) 11/15/16 16:15 U Benzodiazepines Scrn Negative ng/mL (Szfxbi=093) 11/15/16 16:15 Urine Cocaine Screen Negative ng/mL (Cutoff= 300) 11/15/16 16:15 U Marijuana (THC) Screen Negative ng/mL (Cutoff = 50) 11/15/16 16:15 Ethyl Alcohol < 10 mg/dL (0-10) 11/15/16 16:21 Assessment and Plan (1) Post depression Current visit: Yes Status: Acute Plan: Admit inpatient for safety and stabilization, Close observation, Suicide Precautions per unit protocol, Encourage participation in unit milieu, Group Therapy, Monitor sleep, Monitor appetite, Family/Supportive other meeting Additional Plan: inpatient hospitalization for observation and stabilization start sertraline 25 mg po am Risks, benefits, side effects, alternatives discussed w/pt: Yes Patient agreeable to treatment: Yes Plans for Post Hospital Care: Home Estimated Length of Stay (Days): 2 (2) Suicidal ideation Current visit: Yes Status: Acute Plan: Admit inpatient for safety and stabilization, Close observation, Suicide Precautions per unit protocol, Encourage participation in unit milieu, Group Therapy, Monitor sleep, Monitor appetite, Family/Supportive other meeting Risks, benefits, side effects, alternatives discussed w/pt: Yes Patient agreeable to treatment: Yes Plans for Post Hospital Care: Home
[2016-11-16] MEDS: Acetaminophen 325 MG TABLET PO PRN (17:08)
--- NOTE | 2016-11-17 09:40 | Discharge Summary ---
Date of Encounter: 11/17/16 Time of Encounter: 09:15 Diagnosis - Discharge Diagnosis (1) Post depression Status: Acute Comments: Patient started on medication and has follow up appointment and not in danger to self/others (2) Suicidal ideation Status: Resolved Comments: Patient not suicidal /homicidal at present, has good support system Medications - Discharge Medications Prescriptions: Sertraline [Zoloft] 25 mg PO DAILY #14 tablet traZODone [TraZODone] 50 mg PO HS PRN #14 tablet PRN Reason: Insomnia Sertraline [Zoloft] 25 mg PO DAILY #14 tablet 11/17/16 [Rx] traZODone [TraZODone] 50 mg PO HS PRN #14 tablet 11/17/16 [Rx] 3 Allergy/AdvReac Type Severity Reaction Status Date / Time No Known Allergies Allergy Verified 10/09/16 10:11 Provider Date of admission: 11/15/16 21:31 Primary care physician: PCP NONE Assessment and Plan - Patient/Caregiver Discharge Instructions Activity: resume usual activities as tolerated Diet: regular diet - Follow up Plan Follow up with: [facility] [Outside] - 11/24/16 2:00 pm (The above appointment is with Dr. Antonio for primary health care and medication management services.) [facility] [Outside] - 11/24/16 10:00 am (The above appointment is with Nery Herrera for mental health counseling services. Please arrive 15 minutes early to complete paperwork. Please bring your insurance card and photo ID. Your counselor can refer you to see the psychiatric prescriber as well if indicated. If you are unable to keep this appointment, 24 hour business notice of cancellation is expected. This is the first available appointment. You may contact the office regularly to check for cancellations that may allow you to be seen sooner. ) Functional capacity at discharge: independent ambulation Overall status at discharge: Stable Disposition: Home, Self-Care Hospital Course Hospital course: Ms. Roblero is a 20 year old female who was admitted after her bought her to ER as was having mood swings, angry , irritable and not sleeping and making statements like will hurt her self , she has no prior psychiatric history and is post 5 weeks, all started 3 weeks ago. she is living with her grand parents who are supportive, works and is supportive. she denied suicidal ideation in ED but was admitted for observation , she has improved in structure enviornment and zoloft 25 g started, no si/hi. she slept well and has follow up. no drug/subs use history Time spent discussing smoking cessation with patient: 3 to 10 minutes Does patient wish to continue nicotine replacement upon disc: No (patient does not smoke) - Time Spent with Patient Total time spent providing and/or coordinating discharge services: Less than 30 minutes Quality - Multiple Antipsychotics Patient discharged on 2 or more antipsychotic medications: No Procedures - Procedures Procedures: Medication Management, Crisis Stabilization, Supportive Therapy, Group Therapy, Psychoeducational Therapy Mental Status Exam - Mental Status Exam Patient orientation: Yes Person, Yes Time, Yes Place Level of alertness: Alert Patient appearance: Appropriate Behavior: calm, cooperative Psychomotor activity: Normal Eye contact: Maintains Eye Contact Mood description: Euthymic/stable Affect description: congruent with mood Speech pattern: Normal rate Speech Volume: Normal Thought process: Intact Thought Content: Yes Intact Judgment: Good Insight: Full
[2016-11-17 10:33] VITALS: BP 103/70
== END 2016-11-17 11:35 | disposition home or self-care (01) | DRG 884 ==
LOC: EMEROO 15:43 → 1ANU 21:31
PROVIDERS: ADMIT Psychiatry & Neurology Psychiatry; ATTEND Psychiatry & Neurology Psychiatry